=== PATIENT | female | born 1980 | race Caucasian/White ===

== ENCOUNTER 2017-12-03 19:03 | Emergency (ER) | payer SELFPAY, OTHER | END 2017-12-03 21:54 | disposition left against medical advice (07) | LOC: FTE 19:03 | DX: Z53.21 Procedure and treatment not carried out due to patient leaving prior to being seen by health care provider (principal) ==

== ENCOUNTER 2018-12-09 20:17 | Emergency (ER) | payer OTHER | END 2018-12-09 21:44 | disposition home or self-care (01) | LOC: E/R 21:44 | DX: R05 Cough (principal) | CPT/HCPCS: 99283; Z7502 ==